=== PATIENT | female | born 1965 | race African-American/Black ===

== ENCOUNTER 2025-03-28 08:26 | Emergency (ER) | payer SELFPAY ==
[2025-03-28 08:51] LABS: BASOPHILS ABSOLUTE AUTO 0.1 K/mm3 (0.0-0.2); BASOPHILS PERCENT AUTO 0.5 % (0.0-1.0); EOSINOPHILS ABSOLUTE AUTO 0.3 K/mm3 (0.0-0.4); HEMATOCRIT 43.5 % (37.0-47.0); HEMOGLOBIN 14.5 gm/dl (12.0-16.0); IMMATURE GRAN ABSOLUTE AUTO 0.12 K/mm3 (0.00-0.05); IMMATURE GRAN PERCENT AUTO 0.7 % (0.0-0.4); LYMPHOCYTES PERCENT AUTO 12.4 % (24.0-44.0); MEAN CORPUSCULAR HEMOGLOBIN 29.7 pg (28.0-32.0); MEAN CORPUSCULAR HGB CONC 33.3 g/dl (32.0-36.0); MEAN CORPUSCULAR VOLUME 89.1 fl (83.0-99.0); MEAN PLATELET VOLUME 10.1 fl (9.4-12.3); MONOCYTES ABSOLUTE AUTO 0.9 K/mm3 (0.0-0.8); MONOCYTES PERCENT AUTO 5.8 % (0.0-8.0); NEUTROPHILS ABSOLUTE AUTO 12.8 K/mm3 (1.8-7.7); NEUTROPHILS PERCENT AUTO 78.6 % (41.0-71.0); PLATELET COUNT,PLT 329 K/mm3 (150-400); RED BLOOD CELL COUNT 4.88 M/mm3 (4.10-5.30); WHITE BLOOD CELL COUNT,WBC 16.25 K/mm3 (3.9-11.3)
[2025-03-28 09:10] LABS: A/G RATIO 0.7 (1-2); ALBUMIN 3.2 g/dl (3.4-5.0); ANION GAP 12.1 (5-15); BILIRUBIN TOTAL 0.5 mg/dL (0.2-1.0); BUN/CREATININE RATIO 8.8 (14-18); CALCIUM 9.3 mg/dL (8.5-10.1); CREATININE 0.8 mg/dL (0.55-1.02); EST CRCL DRUG DOSING (CG) 57.14 mL/min; MAGNESIUM 1.9 mg/dL (1.8-2.4); POTASSIUM,K 3.1 mEq/L (3.5-5.1); PROTEIN TOTAL,TP 7.6 g/dl (6.4-8.2)
[2025-03-28] MEDS: Sodium Chloride 0.9% 1,000 ML IV SCH (09:13)
[2025-03-28] MEDS: Famotidine 20 MG/2 ML SDV IVPUSH ONE (09:14)
[2025-03-28] MEDS: Ondansetron 4 MG/2 ML SDV IVPUSH ONE (09:15)
[2025-03-28] MEDS: Pantoprazole 40 MG Vial IVPUSH ONE (09:15)
[2025-03-28 09:33] LABS: APPEARANCE,URINE CLEAR (Clear); BILIRUBIN,URINE NEGATIVE (Negative); COLOR,URINE DARK YELLOW (Yellow); GLUCOSE,URINE NEGATIVE (Negative); KETONES,URINE TRACE (Negative); LEUKOCYTE ESTERASE,URINE NEGATIVE (Negative); NITRITE,URINE NEGATIVE (Negative); OCCULT BLOOD,URINE NEGATIVE (Negative); PH,URINE 6.5 (5.0-8.0); PROTEIN,URINE 1+ (Negative); UROBILINOGEN,URINE 0.2 (0.2-1.0)
[2025-03-28 09:38] LABS: BARBITURATE SCREEN,URINE NEGATIVE (CUTOFF=200); BENZODIAZEPINES SCREEN,URINE NEGATIVE (CUTOFF=150); BUPRENORPHINE SCREEN,URINE NEGATIVE (CUTOFF=10); METHADONE SCREEN, URINE NEGATIVE (CUTOFF=200); METHAMPHETAMINES SCREEN, URINE NEGATIVE (CUTOFF=500); OXYCODONE SCREEN,URINE NEGATIVE (CUT0FF=100); THC SCREEN,URINE 20 NG/ML NEGATIVE (CUTOFF=50)
[2025-03-28 09:48] LABS: AMPHETAMINES SCREEN, URINE NEGATIVE (CUTOFF=500)
[2025-03-28 09:56] LABS: BACTERIA,URINE FEW /hpf (FEW); MUCUS,URINE MANY /hpf (FEW); RBC,URINE 0-5 /hpf (0-5); SQUAMOUS EPITHELIAL CELLS,UR 0-5 /hpf (0-5); WBC,URINE 0-5 /hpf (0-5)
[2025-03-28] MEDS: Potassium Chloride 20 MEQ Tab.ER PO ONE (10:21)
[2025-03-28] MEDS: Sodium Chloride 0.9% 10 ML Syringe FLUSH ONE (11:10)
[2025-03-28] MEDS: Iopamidol 612 MG/ML 100 ML Bottle IVPUSH ONE ×2 (11:10)
== END 2025-03-28 14:18 | disposition home or self-care (01) ==
LOC: JD.ED 08:26
DX: K29.70 Gastritis, unspecified, without bleeding (principal); K92.1 Melena; K29.80 Duodenitis without bleeding; F41.9 Anxiety disorder, unspecified; R07.89 Other chest pain; F17.210 Nicotine dependence, cigarettes, uncomplicated; Z88.5 Allergy status to narcotic agent; Z79.899 Other long term (current) drug therapy; Z86.16 Personal history of COVID-19
CPT/HCPCS: 36415; 71045; 74177; 80053; 80306; 81001; 81025; 82550; 83690; 83735; 84484; 85025; 86850; 86900; 86901; 93005; 96361; 96374; 96375; 99285; A9270; J2405; J2470; J7030; Q9967; 93010; 99284

== ENCOUNTER 2025-06-08 20:49 | Inpatient (IN) | payer SELFPAY ==
[2025-06-08] MEDS ORDERED: Sodium Chloride 0.9% 10 ML Syringe FLUSH PRN (21:33)
[2025-06-08 21:41] LABS: APPEARANCE,URINE CLEAR (Clear); GLUCOSE,URINE NEGATIVE (Negative); OCCULT BLOOD,URINE NEGATIVE (Negative)
[2025-06-08 21:54] LABS: BASOPHILS ABSOLUTE AUTO 0.1 K/mm3 (0.0-0.2); BASOPHILS PERCENT AUTO 0.7 % (0.0-1.0); EOSINOPHILS ABSOLUTE AUTO 0.3 K/mm3 (0.0-0.4); EOSINOPHILS PERCENT AUTO 2.8 % (0.0-6.0); IMMATURE GRAN ABSOLUTE AUTO 0.15 K/mm3 (0.00-0.05); IMMATURE GRAN PERCENT AUTO 1.3 % (0.0-0.4); LYMPHOCYTES ABSOLUTE AUTO 1.4 K/mm3 (1.0-4.8); LYMPHOCYTES PERCENT AUTO 12.1 % (24.0-44.0); MEAN PLATELET VOLUME 9.6 fl (9.4-12.3); MONOCYTES ABSOLUTE AUTO 1.7 K/mm3 (0.0-0.8); MONOCYTES PERCENT AUTO 14.5 % (0.0-8.0); NEUTROPHILS ABSOLUTE AUTO 8.2 K/mm3 (1.8-7.7); NEUTROPHILS PERCENT AUTO 68.6 % (41.0-71.0); NRBC ABSOLUTE 0.00 (0.00-0.02); NRBC PERCENT 0.0 % (0.0-0.2); PLATELET COUNT,PLT 435 K/mm3 (150-400); RED BLOOD CELL COUNT 3.61 M/mm3 (4.10-5.30); WHITE BLOOD CELL COUNT,WBC 11.88 K/mm3 (3.9-11.3)
[2025-06-08 22:16] LABS: A/G RATIO 0.6 (1-2); ALANINE AMINOTRANSFERASE,ALT 15.0 U/L (14-59); ASPARTATE AMNIOTRANSFERASE,AST 14.0 U/L (15-37); BILIRUBIN TOTAL 0.3 mg/dL (0.2-1.0); BLOOD UREA NITROGEN,BUN 4.0 mg/dL (7-18); CARBON DIOXIDE,CO2 30.0 mEq/L (21-32); CHLORIDE,CL 99.0 mEq/L (98-107); CREATININE 0.9 mg/dL (0.55-1.02); EST CRCL DRUG DOSING (CG) 50.79 mL/min; ESTIMATED GFR 74.0 mL/min (>60); GLUCOSE RANDOM 94.0 mg/dL (70-99); PROTEIN TOTAL,TP 6.1 g/dl (6.4-8.2); SODIUM,NA 136.0 mEq/L (136-145)
[2025-06-08 22:18] LABS: LACTIC ACID 0.7 mmol/L (0.4-2.0)
[2025-06-08 22:20] LABS: POTASSIUM,K 2.5 mEq/L (3.5-5.1)
[2025-06-08] MEDS ORDERED: Naloxone 0.4 MG/ML SDV IVPUSH PRN (22:32)
[2025-06-08] MEDS: NS + KCl 20mEq/L 2,000 ML IV SCH (22:45)
[2025-06-08] MEDS: Ondansetron 4 MG/2 ML SDV IVPUSH ONE (22:47)
[2025-06-08 22:48] LABS: PHOSPHORUS 2.0 mg/dL (2.6-4.7)
[2025-06-08] MEDS: Potassium Bicarbonate/Cit Ac 20 MEQ Effervescent Tab PO ONE (23:03)
[2025-06-09] MEDS ORDERED: Ondansetron 4 MG/2 ML SDV IV PRN (00:39)
[2025-06-09] MEDS: Magnesium Sulfate 2 GM/50 mL 2 GM in Premix Bag 1 BAG IV ONE (01:35)
[2025-06-09] MEDS: Phosphorus #1 250 MG Tab PO ONE (01:43)
[2025-06-09] MEDS: Acetaminophen/oxyCODONE 325-5 MG Tab PO PRN (01:43)
[2025-06-09] MEDS: Potassium Bicarbonate/Cit Ac 20 MEQ Effervescent Tab PO ONE (02:23)
[2025-06-09] MEDS: Acetaminophen/oxyCODONE 325-5 MG Tab PO ONE (02:23)
[2025-06-09 05:32] LABS: BASOPHILS ABSOLUTE AUTO 0.1 K/mm3 (0.0-0.2); BASOPHILS PERCENT AUTO 0.7 % (0.0-1.0); EOSINOPHILS ABSOLUTE AUTO 0.5 K/mm3 (0.0-0.4); EOSINOPHILS PERCENT AUTO 3.9 % (0.0-6.0); IMMATURE GRAN ABSOLUTE AUTO 0.13 K/mm3 (0.00-0.05); IMMATURE GRAN PERCENT AUTO 1.0 % (0.0-0.4); LYMPHOCYTES ABSOLUTE AUTO 1.6 K/mm3 (1.0-4.8); LYMPHOCYTES PERCENT AUTO 12.7 % (24.0-44.0); MEAN PLATELET VOLUME 9.9 fl (9.4-12.3); MONOCYTES ABSOLUTE AUTO 1.6 K/mm3 (0.0-0.8); MONOCYTES PERCENT AUTO 12.6 % (0.0-8.0); NEUTROPHILS ABSOLUTE AUTO 8.8 K/mm3 (1.8-7.7); NEUTROPHILS PERCENT AUTO 69.1 % (41.0-71.0); NRBC ABSOLUTE 0.00 (0.00-0.02); NRBC PERCENT 0.0 % (0.0-0.2); PLATELET COUNT,PLT 421 K/mm3 (150-400); RED BLOOD CELL COUNT 3.40 M/mm3 (4.10-5.30); WHITE BLOOD CELL COUNT,WBC 12.79 K/mm3 (3.9-11.3)
[2025-06-09 05:36] LABS: PHOSPHORUS 2.2 mg/dL (2.6-4.7)
[2025-06-09 09:36] LABS: POTASSIUM,K 3.5 mEq/L (3.5-5.1); TSH 1.135 uIU/mL (0.358-3.74)
[2025-06-09] MEDS: Potassium Phosphates 30 MMOLE in Sodium Chloride 0.9% 500 ML IV ONE (10:07)
[2025-06-09] MEDS: NS + KCl 20mEq/L 1,000 ML IV SCH (11:18)
[2025-06-09 12:58] LABS: IRON,FE 10.0 ug/dL (50-170); PERCENT FE SATURATION 8.0 % (20-55); VITAMIN D,25-HYDROXY 7.5 ng/ml (30.0-100.0)
[2025-06-09] MEDS ORDERED: Sodium Ferric Gluconate Cmplex 125 MG in Sodium Chloride 0.9% 100 ML IV ONE (14:00)
[2025-06-09] MEDS ORDERED: NS + KCl 20mEq/L 1,000 ML IV SCH (14:15)
[2025-06-09] MEDS: methylPREDNISolone Sodium Succinate 40 MG/1 ML SDV IVPUSH SCH (14:27)
[2025-06-10] MEDS ORDERED: Cholecalciferol (Vitamin D3) 5,000 UNIT Cap PO SCH (09:00)
== END 2025-06-09 15:08 | DRG 386 ==
LOC: JD.ED 20:49 → JD.MS 06-09 00:39
PROVIDERS: ADMIT Family Medicine; ATTEND Family Medicine
DX: K50.811 Crohn's disease of both small and large intestine with rectal bleeding (principal); D62 Acute posthemorrhagic anemia; E87.6 Hypokalemia; E83.42 Hypomagnesemia; K52.9 Noninfective gastroenteritis and colitis, unspecified; E83.39 Other disorders of phosphorus metabolism; E86.0 Dehydration; M81.0 Age-related osteoporosis without current pathological fracture; M19.90 Unspecified osteoarthritis, unspecified site; Z88.8 Allergy status to other drugs, medicaments and biological substances; Z79.2 Long term (current) use of antibiotics; Z79.899 Other long term (current) drug therapy; Z87.01 Personal history of pneumonia (recurrent); Z86.16 Personal history of COVID-19; Z87.891 Personal history of nicotine dependence
CPT/HCPCS: 36415; 80053; 81003; 82306; 82607; 82728; 83540; 83605; 83735; 84100; 84132; 84443; 84466; 85025; 85027; 85652; 86140; 87507; 94761; 96365; 96366; 96375; 99235; 99285; 99285-25; A9270-GY; J1171; J2270; J2405; J2543; J3475; J3480; J3490; J7040

== ENCOUNTER 2025-09-16 10:01 | Emergency (ER) | payer BC ==
[2025-09-16 10:22] LABS: BASOPHILS ABSOLUTE AUTO 0.1 K/mm3 (0.0-0.2); BASOPHILS PERCENT AUTO 0.6 % (0.0-1.0); EOSINOPHILS ABSOLUTE AUTO 0.1 K/mm3 (0.0-0.4); EOSINOPHILS PERCENT AUTO 0.7 % (0.0-6.0); IMMATURE GRAN ABSOLUTE AUTO 0.25 K/mm3 (0.00-0.05); IMMATURE GRAN PERCENT AUTO 1.3 % (0.0-0.4); LYMPHOCYTES ABSOLUTE AUTO 2.5 K/mm3 (1.0-4.8); LYMPHOCYTES PERCENT AUTO 13.0 % (24.0-44.0); MEAN PLATELET VOLUME 10.0 fl (9.4-12.3); MONOCYTES ABSOLUTE AUTO 2.5 K/mm3 (0.0-0.8); MONOCYTES PERCENT AUTO 12.9 % (0.0-8.0); NEUTROPHILS ABSOLUTE AUTO 13.9 K/mm3 (1.8-7.7); NEUTROPHILS PERCENT AUTO 71.5 % (41.0-71.0); NRBC ABSOLUTE 0.00 (0.00-0.02); NRBC PERCENT 0.0 % (0.0-0.2); RED BLOOD CELL COUNT 4.17 M/mm3 (4.10-5.30); WHITE BLOOD CELL COUNT,WBC 19.42 K/mm3 (3.9-11.3)
[2025-09-16] MEDS ORDERED: Naloxone 0.4 MG/ML SDV IVPUSH PRN (10:23)
[2025-09-16 10:24] LABS: PLATELET COUNT,PLT 289 K/mm3 (150-400)
[2025-09-16] MEDS: Sodium Chloride 0.9% 10 ML Syringe FLUSH PRN (10:36)
[2025-09-16] MEDS: Iopamidol 755 Mg/ML 100 ML Bottle IVPUSH ONE (10:37)
[2025-09-16] MEDS: Ondansetron 4 MG/2 ML SDV IVPUSH ONE (10:46)
[2025-09-16 10:47] LABS: A/G RATIO 0.6 (1-2); ALANINE AMINOTRANSFERASE,ALT 15 U/L (14-59); ASPARTATE AMNIOTRANSFERASE,AST 10 U/L (15-37); BILIRUBIN TOTAL 0.4 mg/dL (0.2-1.0); BLOOD UREA NITROGEN,BUN 9 mg/dL (7-18); CARBON DIOXIDE,CO2 25 mEq/L (21-32); CHLORIDE,CL 106 mEq/L (98-107); CREATININE 0.9 mg/dL (0.55-1.02); ESTIMATED GFR 73 mL/min (>60); GLUCOSE RANDOM 83 mg/dL (70-99); POTASSIUM,K 2.8 mEq/L (3.5-5.1); PROTEIN TOTAL,TP 6.4 g/dl (6.4-8.2); SODIUM,NA 142 mEq/L (136-145)
[2025-09-16] MEDS: diphenhydrAMINE 50 MG/ML SDV IV ONE (10:50)
[2025-09-16 10:55] LABS: LACTIC ACID 0.7 mmol/L (0.4-2.0)
[2025-09-16] MEDS: Pantoprazole 80 MG in Sodium Chloride 0.9% 10 ML IVPUSH ONE (10:58)
[2025-09-16 12:12] LABS: APPEARANCE,URINE CLEAR (Clear); GLUCOSE,URINE NEGATIVE (Negative); OCCULT BLOOD,URINE NEGATIVE (Negative)
== END 2025-09-16 13:58 ==
LOC: JD.ED 10:01
DX: K51.90 Ulcerative colitis, unspecified, without complications (principal); E86.1 Hypovolemia; K92.2 Gastrointestinal hemorrhage, unspecified; B96.89 Other specified bacterial agents as the cause of diseases classified elsewhere; Z88.8 Allergy status to other drugs, medicaments and biological substances; Z88.5 Allergy status to narcotic agent; Z79.899 Other long term (current) drug therapy; Z86.16 Personal history of COVID-19
CPT/HCPCS: 36415; 36430; 72191; 74175; 80053; 81003; 83605; 85025; 85652; 86140; 86922; 87040; 87507; 93005; 96365; 96366; 96375; 99285; A4216; J1200; J2270; J2405; J2470; J7030; P9016; Q9967; 86850; 86900; 86901